=== PATIENT | male | born 2000 | race Caucasian/White ===

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

== ENCOUNTER → 2020-06-22 10:57 | Outpatient (CLI) | payer OTHER, SELFPAY ==
--- NOTE | 2020-06-22 11:08 | MRI_ITS ---
STUDY: MRI RIGHT SHOULDER REASON FOR EXAM: Right shoulder pain, wrestling injury, prior dislocations. TECHNIQUE: Standardized fat and water weighted pulse sequences were obtained in all 3 orthogonal planes. COMPARISON: None. FINDINGS: Normal supraspinatus tendon. Normal infraspinatus tendon. Normal subscapularis tendon. Normal teres minor tendon. Normal supraspinatus muscle. Normal infraspinatus muscle. Normal subscapularis muscle. Normal teres minor muscle. Normal glenohumeral articulation. There is an intra-articular body in the subscapularis recess (T2 coronal images 16, 17; proton-density axial image 12) measuring 1.0 cm in AP dimension. Normal humeral head and visualized proximal humerus without Hill-Sachs lesion. Normal biceps labral complex. Normal intracapsular long biceps tendon. There is a tear of the base of the posterior inferior labrum (proton-density axial images 12, 13. Normal capsulo- ligamentous complex. Normal acromioclavicular articulation. There is a Type II morphology (curved), with a neutral orientation. There is no subacromial-subdeltoid bursal fluid. Normal visualized coracohumeral and coracoacromial ligaments. Normal deltoid muscle. Normal trapezius muscle. MRI/Upper Ext Joint Only(Routine) IMPRESSION: Posterior inferior labral tear. Intra-articular body in the subscapularis recess. Electronically Signed: Hung Carlton MD at 12:20 EST Tel , Service support ,
== END ==
PROVIDERS: PCP Pediatrics; Referring Provider Pediatrics; Visit Provider Pediatrics
DX: M25.511 Pain in right shoulder (principal); G89.29 Other chronic pain
CPT/HCPCS: 73221